=== PATIENT | male | born 1975 | race Caucasian/White ===

== ENCOUNTER → 2021-11-22 11:13 | Outpatient (CLI) | payer OTHER, SELFPAY ==
--- NOTE | 2021-11-22 | DI.RAD.S_ITS ---
PROCEDURE: XR LUMBAR SPINE 2-3V INDICATIONS: Low Back Pain TECHNIQUE: 3 views of the lumbar spine were acquired. COMPARISON: None. FINDINGS: Bones: 5 [id number] vertebrae are present. There is normal bony alignment. Mild facet arthrosis at L5-S1. No vertebral body compression fractures. No suspicious bony lesions. Soft tissues: Overlying bowel gas pattern is normal. No suspicious soft tissue calcifications. IMPRESSION: No acute osseous abnormality. Dictated by: Natan Borja M.D. on 11/22/2021 at 14:05 Approved by: Natan Borja M.D. on 11/22/2021 at 14:05
== END ==
PROVIDERS: PCP Family Medicine; Referring Provider Family Medicine; Visit Provider Family Medicine
DX: M54.50 Low back pain, unspecified (principal)
CPT/HCPCS: 72100